=== PATIENT | female | born 1975 | race Caucasian/White ===

== ENCOUNTER 2018-02-15 21:45 | Emergency (ER) | payer OTHER ==
[~2018-02-15] VITALS: Ht 154.9 cm; Wt 72.6 kg
[2018-02-15 21:46] VITALS: BP 128/94
== END 2018-02-15 21:56 | disposition left against medical advice (07) ==
LOC: M.ERS 21:45
DX: F10.129 Alcohol abuse with intoxication, unspecified (principal); R55 Syncope and collapse